=== PATIENT | male | born 2000 | race Two or more races ===

== ENCOUNTER 2025-01-30 19:40 | Emergency (ER) | payer OTHER ==
[~2025-01-30] VITALS: Ht 167.6 cm; Wt 77.1 kg
[2025-01-30 19:42] VITALS: BP 129/75
[2025-01-30] MEDS ORDERED: KETOROLAC TROMETHAMINE 30 MG INJ ONE (20:27)
[2025-01-30] MEDS: KETOROLAC TROMETHAMINE 30 MG INJ IM ONE (20:30)
[2025-01-30] MEDS: HYDROCODONE/APAP 5-325MG TABLET PO ONE (20:30)
[2025-01-30 21:06] LABS: *BILIRUBIN,URIN NEGATIVE (NEGATIVE); *BLOOD, URINE NEGATIVE (NEGATIVE); *CLARITY,URINE CLEAR (CLEAR); *COLOR,URINE YELLOW (YELLOW); *KETONES,URINE NEGATIVE (NEGATIVE); *PROTEIN,URINE NEGATIVE (NEGATIVE); *UROBILINOGEN,URINE 0.2 E.U./dl (NORMAL); LEUKOCYTE ESTERASE ,URINE NEGATIVE (NEGATIVE); NITRITE, URINE NEGATIVE (NEGATIVE); UGLUCOSE NEGATIVE (NEGATIVE)
[2025-01-30] MEDS ORDERED: CYCL5TAB PO (21:28)
[2025-01-30] MEDS ORDERED: NAPR-1009 PO (21:28)
[2025-01-30] MEDS ORDERED: GABA300C PO (21:28)
[2025-01-30 21:36] VITALS: BP 125/73; O2SAT 99
== END 2025-01-30 21:37 | disposition home or self-care (01) ==
LOC: ER 19:55
DX: M54.16 Radiculopathy, lumbar region (principal); R10.31 Right lower quadrant pain; R10.32 Left lower quadrant pain; R05.9 Cough, unspecified
CPT/HCPCS: A4606; A4663; J1885